=== PATIENT | female | born 1995 | race Caucasian/White ===

== ENCOUNTER 2017-05-27 19:00 | Emergency (ER) | payer BC ==
[~2017-05-27] VITALS: Ht 165.1 cm; Wt 72.6 kg
[~2017-05-27 19:00] MED LIST: NORCO 5-325 TA1 EACH ORAL; ZOFRAN ODT4 MG ORAL
[2017-05-27 19:58] LABS: BASOPHILS % (AUTO) 0.9 % (0.0-2.0); EOSINOPHILS % (AUTO) 1.5 % (0.0-3.0); LYMPHOCYTES % (AUTO) 25.9 % (20.0-45.0); MEAN CORPUSCULAR HEMOGLOBIN 30.2 PG (27.0-31.0); MEAN CORPUSCULAR HGB CONC 33.9 G/DL (32.0-36.0); MEAN CORPUSCULAR VOLUME 89 FL (80-99); MEAN PLATELET VOLUME 8.2 FL (6.5-10.1); MONOCYTES % (AUTO) 6.5 % (1.0-10.0); NEUTROPHILS % (AUTO) 65.2 % (45.0-75.0); PLATELET COUNT 234 K/UL (150-450); RED BLOOD COUNT 4.97 M/UL (4.20-5.40); RED CELL DISTRIBUTION WIDTH 10.8 % (11.6-14.8); WHITE BLOOD COUNT 10.4 K/UL (4.8-10.8)
[2017-05-27 20:02] LABS: APPEARANCE,URINE CLEAR; KETONES,URINE NEGATIVE (NEGATIVE); LEUKOCYTE ESTERASE ,URINE 1+ (NEGATIVE); NITRITE,URINE NEGATIVE (NEGATIVE); PH,URINE 8 (4.5-8.0); PROTEIN,URINE NEGATIVE (NEGATIVE); UROBILINOGEN,URINE NORMAL MG/DL (0.0-1.0)
[2017-05-27 20:09] LABS: WBC,URINE 30-40 /HPF (0 - 2)
[2017-05-27 20:10] LABS: BACTERIA,URINE OCCASIONAL /HPF; SQUAMOUS EPITHELIAL CELL,UR FEW /LPF (NONE/OCC)
--- NOTE | 2017-05-27 20:12 | Emergency Room Report ---
History of Present Illness General Chief Complaint: Abdominal Pain Source: Patient, Medical Record Present Illness HPI 21YOF with 2-3 days generalized abd pain and dysuria. Assoc with nausea/ Denies diarrhea. CURES shows monthly narcotics and benzos from multiple providers, last was April. Allergies: Coded Allergies: DIPHENHYDRAMINE (Verified Allergy, Unknown, 02/06/16) KETOROLAC (Verified Allergy, Unknown, 02/06/16) PROCHLORPERAZINE (Verified Allergy, Unknown, 02/06/16) SUMATRIPTAN (Verified Allergy, Unknown, 02/06/16) Patient History Past Medical History: migraines Past Surgical History: other - Oopherectomy? Last Menstrual Period: 05/24/17 Now: No Immunizations: UTD Reviewed Nursing Documentation: PMH: Agreed, PSxH: Agreed Nursing Documentation-PMH Past Medical History: No History, Except For Hx Neurological Problems: Yes - migraine Review of Systems All Other Systems: negative except mentioned in HPI Physical Exam Vital Signs Date Time Temp Pulse Resp B/P Pulse Ox O2 Delivery O2 Flow Rate FiO2 05/27/17 19:02 98.8 105 16 137/90 96 Room Air Sp02 EP Interpretation: reviewed, abnormal General Appearance: normal inspection, well appearing, no apparent distress, alert, GCS 15, non-toxic Head: normocephalic, atraumatic Eyes: bilateral eye EOMI, bilateral eye PERRL ENT: normal ENT inspection, hearing grossly normal, normal voice Neck: normal inspection, full range of motion, supple, no bony tend Respiratory: normal inspection, lungs clear, normal breath sounds, no respiratory distress, no retraction, no wheezing Cardiovascular #1: regular rate, rhythm, no edema Gastrointestinal: normal inspection, normal bowel sounds, soft, no guarding, no hernia, other - mild suprapubic ttp on exam Genitourinary: no CVA tenderness Musculoskeletal: normal inspection, back normal, normal range of motion, Daniel' s Sign negative Neurologic: normal inspection, alert, oriented x3, responsive, 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 Afebrile. - Urine grossly infected - No leuks or other metabolic abnormalities. - No CVAT or systemic symptoms to indicate pyelo. - IV rocephin given in ED - Rx macrobid DC home Last Vital Signs Date Time Temp Pulse Resp B/P Pulse Ox O2 Delivery O2 Flow Rate FiO2 05/27/17 19:02 98.8 105 16 137/90 96 Room Air Status: improved Disposition: HOME, SELF-CARE Scripts Nitrofurantoin Monohyd/M-Cryst* (MACROBID 100 MG*) 100 Mg Capsule 100 MG ORAL EVERY 12 HOURS for 7 Days, #14 CAP Prov: RUFUS CORADO M.D. 05/27/17 Referrals: NON PHYSICIAN (PCP) RUFUS CORADO M.D. May 27, 2017 20:12
[2017-05-27 20:13] LABS: ALANINE AMINOTRANSFERASE 23 U/L (3-33); ALBUMIN/GLOBULIN RATIO 1.3 (1.0-2.7); ANION GAP 10 (5-15); ASPARTATE AMINO TRANSFERASE 20 U/L (5-40); CALCIUM 9.4 mg/dL (8.6-10.2); CARBON DIOXIDE 27 mEQ/L (20-30); CHLORIDE 101 mEQ/L (98-107); CREATININE 0.7 mg/dL (0.5-0.9); GLOMERULAR FILTRATION RATE > 60 mL/min (>60); HEMOLYSIS 6; LIPASE 23 U/L (< 60); POTASSIUM 4.3 mEQ/L (3.4-4.9); SODIUM 138 mEQ/L (135-145); TOTAL PROTEIN 7.8 g/dL (6.6-8.7)
[2017-05-27] MEDS ORDERED: cefTRIAXone 1 GM in NS 55 ML IVPB ONE (20:15)
[2017-05-27] MEDS ORDERED: NITROFURANTOIN100 M2 ORAL (20:18)
[2017-05-27 21:41] VITALS: BP 128/88
[2017-05-31] MEDS ORDERED: ZOFRAN ODT4 MG ORAL (11:55)
[2017-05-31] MEDS ORDERED: KEFLEX500 MG ORAL (11:55)
== END 2017-05-27 21:46 | disposition home or self-care (01) ==
LOC: EMR 19:36
DX: R10.9 Unspecified abdominal pain (principal); N30.01 Acute cystitis with hematuria; R11.0 Nausea; Z88.8 Allergy status to other drugs, medicaments and biological substances
CPT/HCPCS: 36415; 80053; 80300; 81003; 81025; 83690; 85025; 87086; 87181; 96374; 99284; J0696